=== PATIENT | female | born 1960 | race Caucasian/White ===

== ENCOUNTER 2017-04-06 18:07 | Emergency (ER) | payer OTHER ==
[~2017-04-06] VITALS: Ht 157.5 cm; Wt 78.5 kg
[2017-04-06 18:42] LABS: Basophils # (auto) 0.1 uL; Basophils % (auto) 1.3 % (0.0-2.0); Eosinophils # (auto) 0.5 uL; Eosinophils % (auto) 4.8 % (0.0-7.0); Hematocrit 43.7 % (36.0-46.0); Hemoglobin 14.8 g/dL (12.2-16.2); Lymphocytes # (auto) 2.8 uL; Lymphocytes % (auto) 25.7 % (10.0-50.0); Mean Corpuscular Hemoglobin 31.6 pg (28.0-32.0); Mean Corpuscular Hgb Conc. 33.8 g/dL (32.0-36.0); Mean Corpuscular Volume 93.4 fL (80.0-100.0); Mean Platelet Volume 8.4 fL (6.9-10.8); Monocytes # (auto) 0.7 uL; Monocytes % (auto) 6.3 % (0.0-12.0); Neutrophils # (auto) 6.7 uL; Neutrophils % (auto) 61.9 % (37.0-80.0); Nucleated Red Blood Cells % 0.1 %; Platelet Count (auto) 344 10^3/uL (140-450); Red Cell Distribution Width 13.4 % (11.8-14.3); White Blood Cell 10.9 10^3/uL (4.4-10.8)
[2017-04-06 19:08] LABS: Albumin 3.9 g/dL (3.4-5.0); BUN/Creatinine Ratio 16.5; Bilirubin, Total 0.3 mg/dL (0.2-1.0); Calcium 9.9 mg/dL (8.5-10.1); Potassium 4.1 mmol/L (3.5-5.1); Total Protein 8.2 g/dL (6.4-8.2)
[2017-04-06 21:03] VITALS: BP 135/62
[2017-04-06] MEDS ORDERED: SODIUM CHLORIDE 0.9% 1,000 ML IV ONE (21:15)
[2017-04-06 21:51] LABS: INR 0.95 (0.9-1.15); Prothrombin Time 10.3 sec (9.37-12.3)
[2017-04-07] MEDS ORDERED: TRAM50TA2 PO (17:56)
[2017-04-07] MEDS ORDERED: SERT-274 PO (17:56)
[2017-04-07] MEDS ORDERED: ALPR0.5T7 PO (17:56)
[2017-04-07] MEDS ORDERED: NAPR220C PO (17:56)
[2017-04-07] MEDS ORDERED: GABA-497 PO (17:56)
== END 2017-04-06 23:37 | disposition left against medical advice (07) ==
LOC: ER 18:13
DX: K92.2 Gastrointestinal hemorrhage, unspecified (principal)
CPT/HCPCS: 36415; 74176; 80053; 85025; 85610; 96360

== ENCOUNTER 2017-04-07 13:05 | Inpatient (IN) | payer OTHER ==
[~2017-04-07] VITALS: Ht 157.5 cm; Wt 84.1 kg
[2017-04-07] MEDS ORDERED: SODIUM CHLORIDE 0.9% 1,000 ML IV ONE (13:36)
[2017-04-07] MEDS ORDERED: PANTOPRAZOLE 40 MG/10 ML VIAL IV ONE (13:45)
[2017-04-07 14:15] LABS: Basophils # (auto) 0.1 uL; Basophils % (auto) 1.2 % (0.0-2.0); Eosinophils # (auto) 0.5 uL; Eosinophils % (auto) 5.5 % (0.0-7.0); Hematocrit 43.9 % (36.0-46.0); Hemoglobin 14.7 g/dL (12.2-16.2); Lymphocytes # (auto) 2.5 uL; Lymphocytes % (auto) 29.2 % (10.0-50.0); Mean Corpuscular Hemoglobin 31.4 pg (28.0-32.0); Mean Corpuscular Hgb Conc. 33.6 g/dL (32.0-36.0); Mean Corpuscular Volume 93.6 fL (80.0-100.0); Mean Platelet Volume 8.6 fL (6.9-10.8); Monocytes # (auto) 0.7 uL; Monocytes % (auto) 7.8 % (0.0-12.0); Neutrophils # (auto) 4.8 uL; Neutrophils % (auto) 56.3 % (37.0-80.0); Nucleated Red Blood Cells % 0.1 %; Platelet Count (auto) 330 10^3/uL (140-450); Red Cell Distribution Width 13.4 % (11.8-14.3); White Blood Cell 8.5 10^3/uL (4.4-10.8)
[2017-04-07 14:38] LABS: Albumin 3.8 g/dL (3.4-5.0); BUN/Creatinine Ratio 15.6; Bilirubin, Total 0.3 mg/dL (0.2-1.0); Calcium 9.5 mg/dL (8.5-10.1); Potassium 4.2 mmol/L (3.5-5.1)
[2017-04-07 14:41] LABS: Urine Bilirubin Negative (Negative); Urine Blood Negative /uL (Negative); Urine Color Yellow (Yellow); Urine Glucose Normal (Normal); Urine Ketone Negative (Negative); Urine Mucus FEW (None Seen); Urine Nitrite Negative (Negative); Urine RBC <1 /hpf (0 - 4); Urine Squamous Epithelial Cell FEW /hpf (<5); Urine Urobilinogen Normal (Negative); Urine pH 5.5 (5.0-8.0)
[2017-04-07] MEDS ORDERED: MORPHINE SULF INJ 2 MG/ML SYRINGE 1ML IV PRN ×2 (16:00)
[2017-04-07] MEDS ORDERED: LACTULOSE 20Gm/30ML SOLN PO PRN (16:00)
[2017-04-07] MEDS ORDERED: HYDROcodone-ACET 5/325MG TAB PO PRN (16:00)
[2017-04-07] MEDS ORDERED: ACETAMINOPHEN 500 MG TAB PO PRN (16:00)
[2017-04-07] MEDS ORDERED: LORazepam 0.5 MG TAB PO PRN (16:00)
[2017-04-07] MEDS ORDERED: NITROGLYCERIN 0.4 MG SL TAB SL PRN (16:00)
[2017-04-07] MEDS ORDERED: metroNIDAZOLE 500MG/100ML 100 ML IV ONE (16:15)
[2017-04-07] MEDS ORDERED: cefTRIAXone 1GM/50ML D5W 50 ML IV ONE (16:15)
[2017-04-07] MEDS: SODIUM CHLORIDE 0.9% 1,000 ML IV SCH ×2 (16:27→18:36)
[2017-04-07 17:10] VITALS: BP 113/69
[2017-04-07] MEDS ORDERED: ALPR0.5T7 PO (17:56)
[2017-04-07] MEDS ORDERED: NAPR220C PO (17:56)
[2017-04-07] MEDS ORDERED: GABA-497 PO (17:56)
[2017-04-07] MEDS ORDERED: SERT-274 PO (17:56)
[2017-04-07] MEDS ORDERED: TRAM50TA2 PO (17:56)
[2017-04-07 18:19] LABS: Hematocrit 41.5 % (36.0-46.0); Hemoglobin 13.7 g/dL (12.2-16.2)
[2017-04-07 20:00] VITALS: BP 110/75
[2017-04-07] MEDS: metroNIDAZOLE 500MG/100ML 100 ML IV SCH (21:59)
[2017-04-07 22:00] VITALS: BP 110/75
[2017-04-07] MEDS: PANTOPRAZOLE 40 MG TAB PO SCH (22:00)
[2017-04-08] VITALS (7 sets, daily range): BP systolic 98–117; BP diastolic 61–77
[2017-04-08] MEDS: TEMAZEPAM 15 MG CAP PO PRN ×2 (00:21→22:32)
[2017-04-08 01:16] LABS: Hematocrit 40.3 % (36.0-46.0); Hemoglobin 13.2 g/dL (12.2-16.2)
[2017-04-08] MEDS: metroNIDAZOLE 500MG/100ML 100 ML IV SCH ×3 (05:21→22:19)
[2017-04-08 06:03] LABS: Hemoglobin 13.1 g/dL (12.2-16.2)
[2017-04-08] MEDS: cefTRIAXone 1GM/50ML D5W 50 ML IV SCH (09:11)
[2017-04-08] MEDS: PANTOPRAZOLE 40 MG TAB PO SCH ×2 (09:11→22:18)
[2017-04-08] MEDS ORDERED: GASTROGRAFIN 30 ML SOL ONE (13:13)
[2017-04-08] MEDS ORDERED: IOHEXOL 300 MG/ML 100ML BOTTLE IJ ONE (15:10)
[2017-04-08] MEDS: SODIUM CHLORIDE 0.9% 1,000 ML IV SCH ×2 (15:58→23:50)
[2017-04-09] VITALS (7 sets, daily range): BP systolic 94–121; BP diastolic 62–79
[2017-04-09] MEDS: metroNIDAZOLE 500MG/100ML 100 ML IV SCH ×2 (05:30→13:30)
[2017-04-09 06:08] LABS: Basophils # (auto) 0.1 uL; Eosinophils # (auto) 0.5 uL; Eosinophils % (auto) 5.9 % (0.0-7.0); Hematocrit 38.4 % (36.0-46.0); Hemoglobin 12.6 g/dL (12.2-16.2); Lymphocytes # (auto) 2.5 uL; Lymphocytes % (auto) 31.9 % (10.0-50.0); Mean Corpuscular Hgb Conc. 32.7 g/dL (32.0-36.0); Monocytes # (auto) 0.6 uL; Monocytes % (auto) 8.2 % (0.0-12.0); Neutrophils # (auto) 4.1 uL; Nucleated Red Blood Cells % 0.1 %; Platelet Count (auto) 267 10^3/uL (140-450); Red Cell Distribution Width 13.4 % (11.8-14.3); White Blood Cell 7.7 10^3/uL (4.4-10.8)
[2017-04-09 06:31] LABS: BUN/Creatinine Ratio 6.3; Bilirubin, Total 0.3 mg/dL (0.2-1.0); Calcium 8.6 mg/dL (8.5-10.1); Potassium 3.8 mmol/L (3.5-5.1); Total Protein 6.2 g/dL (6.4-8.2)
[2017-04-09] MEDS: cefTRIAXone 1GM/50ML D5W 50 ML IV SCH (08:49)
[2017-04-09] MEDS: PANTOPRAZOLE 40 MG TAB PO SCH ×2 (08:49→22:28)
[2017-04-09] MEDS ORDERED: GOLYTELY 4L KIT PO ONE (12:00)
[2017-04-09 12:26] LABS: INR 0.98 (0.9-1.15); Prothrombin Time 10.7 sec (9.37-12.3)
[2017-04-09] MEDS: SODIUM CHLORIDE 0.9% 1,000 ML IV SCH (15:58)
[2017-04-09] MEDS: PROMETHAZINE HCL 25 MG/ML 1ML IV PRN (17:31)
[2017-04-10] MEDS: PROMETHAZINE HCL 25 MG/ML 1ML IV PRN (03:47)
[2017-04-10] MEDS ORDERED: GOLYTELY 4L KIT PO ONE (04:00)
[2017-04-10] MEDS: SODIUM CHLORIDE 0.9% 1,000 ML IV SCH ×2 (04:10→11:58)
[2017-04-10 05:01] VITALS: BP 102/61
[2017-04-10 05:22] LABS: Hematocrit 41.2 % (36.0-46.0); Hemoglobin 13.7 g/dL (12.2-16.2)
[2017-04-10] MEDS ORDERED: LIDOCAINE VISCOUS 2% 15ML UD ONE (07:45)
[2017-04-10] MEDS ORDERED: SODIUM CHLORIDE LOCK 10 ML ONE (07:45)
[2017-04-10] MEDS ORDERED: diphenhdrAMINE HCL 50 MG/1 ML VL ONE (07:46)
[2017-04-10 09:00] VITALS: BP 112/71
[2017-04-10] MEDS: PANTOPRAZOLE 40 MG TAB PO SCH (10:00)
[2017-04-10] MEDS: fentaNYL CITRATE 100 MCG/2 ML VL ONE ×2 (11:39→11:42)
[2017-04-10] MEDS: MIDAZOLAM HCL 5 MG/ML-1ML VIAL ONE ×2 (11:39→11:42)
[2017-04-10 13:00] VITALS: BP 104/66
[2017-04-10 17:00] VITALS: BP 110/72
[2017-04-10 18:31] VITALS: BP 110/72
== END 2017-04-10 19:20 | disposition home or self-care (01) | DRG 394 ==
LOC: ER 13:05 → TELE 13:06 → TELE-WESTW 17:10
PROVIDERS: ADMIT Internal Medicine; ATTEND Internal Medicine
PROC: 0DJD8ZZ Inspection of Lower Intestinal Tract, Via Natural or Artificial Opening Endoscopic (ICD-10-PCS; principal; 2017-04-10 11:35)
PROC: 0DJ08ZZ Inspection of Upper Intestinal Tract, Via Natural or Artificial Opening Endoscopic (ICD-10-PCS; 2017-04-10 11:35)
DX: K64.8 Other hemorrhoids (principal); K92.1 Melena; B27.00 Gammaherpesviral mononucleosis without complication; E66.9 Obesity, unspecified; F32.9 Major depressive disorder, single episode, unspecified; F41.9 Anxiety disorder, unspecified; M79.7 Fibromyalgia; Z68.33 Body mass index [BMI] 33.0-33.9, adult; Z83.3 Family history of diabetes mellitus; Z80.49 Family history of malignant neoplasm of other genital organs; Z90.49 Acquired absence of other specified parts of digestive tract; Z82.49 Family history of ischemic heart disease and other diseases of the circulatory system
CPT/HCPCS: 36415; 43235; 45378; 71010; 74178; 80053; 81001; 82150; 82270; 82378; 83690; 84443; 85014; 85018; 85025; 85045; 85610; 85652; 86141; 86850; 86900; 86901; 87086; 93005; 96361; 96365; 96375; C9113; J0696; J2250; J3490

== ENCOUNTER 2018-12-27 21:15 | Emergency (ER) | payer MEDICAID ==
[~2018-12-27] VITALS: Ht 157.5 cm; Wt 81.6 kg
[~2018-12-27 21:15] MED LIST: ALPR0.5T7 PO; GABA300C10 PO; SERT-274 PO; TRAM50TA2 PO
[2018-12-27] MEDS ORDERED: HYDROcodone-ACET 7.5/325MG TAB PO ONE (22:30)
[2018-12-27 23:00] VITALS: BP 113/63
== END 2018-12-28 00:38 | disposition home or self-care (01) ==
LOC: ER 21:22
DX: S62.102A Fracture of unspecified carpal bone, left wrist, initial encounter for closed fracture (principal); Z79.899 Other long term (current) drug therapy; W18.39XA Other fall on same level, initial encounter; Y93.89 Activity, other specified; Y99.8 Other external cause status; Y92.89 Other specified places as the place of occurrence of the external cause
CPT/HCPCS: 29125; 73130